=== PATIENT | female | born 1970 | race Caucasian/White ===

== ENCOUNTER 2017-12-02 08:15 | Day surgery (SDC) | payer BC ==
[~2017-12-02] VITALS: Ht 160 cm; Wt 88.0 kg
[~2017-12-02 08:15] MED LIST: Cipro PO; EXFORGE HCT 5-1 EAC1 PO; FENOFIBRATE160 M1 PO; FISH OIL 1,0001 EAC7 PO; LIDODERM 5% P1 PATCH TD; NEURONTIN100 MG PO; TOPAMAX200 MG PO; TORADOL10 MG PO; VIVELLE-DOT0.1 MG TD; [UNRECOGNIZED DRUG - OTHER] PO
== END 2017-12-02 10:40 | disposition home or self-care (01) ==
LOC: PAIN 08:15 → SDC 08:45 → PAIN 08:45
DX: R10.11 Right upper quadrant pain (principal); G89.28 Other chronic postprocedural pain; G58.8 Other specified mononeuropathies; I10 Essential (primary) hypertension; F41.9 Anxiety disorder, unspecified; K66.0 Peritoneal adhesions (postprocedural) (postinfection); E78.5 Hyperlipidemia, unspecified
CPT/HCPCS: J1030; J2250; J3010; S0020